=== PATIENT | female | born 1980 | race Asian ===

== ENCOUNTER → 2023-08-18 15:53 | Outpatient (REF) | payer OTHER, SELFPAY | LOC: HWWDC 15:53 | PROVIDERS: ATTENDING PHYSICIAN Physician Assistant | DX: Z12.31 Encounter for screening mammogram for malignant neoplasm of breast (principal) | CPT/HCPCS: 77063; 77067 ==

== ENCOUNTER → 2024-06-28 12:45 | Outpatient (REF) | payer OTHER, SELFPAY | LOC: HWRAD 12:45 | PROVIDERS: ATTENDING PHYSICIAN Family Medicine | DX: M79.2 Neuralgia and neuritis, unspecified (principal) | CPT/HCPCS: 72100; 72170 ==

== ENCOUNTER → 2024-08-20 15:19 | Outpatient (REF) | payer OTHER, SELFPAY | LOC: HWWDC 15:19 | PROVIDERS: ATTENDING PHYSICIAN Family Medicine | DX: Z12.31 Encounter for screening mammogram for malignant neoplasm of breast (principal) | CPT/HCPCS: 77063; 77067 ==